=== PATIENT | male | born 1955 | race Caucasian/White ===

== ENCOUNTER → 2020-03-23 | Outpatient (CLI) | payer BC | END | disposition home or self-care (01) | LOC: LABWHC1 09:20 | PROVIDERS: ATTEND Emergency Medicine | DX: Z20.828 Contact with and (suspected) exposure to other viral communicable diseases (principal) | CPT/HCPCS: U0003; C9803 ==

== ENCOUNTER → 2023-11-20 | Day surgery (SDC) | payer BC ==
--- NOTE | 2023-11-18 20:04 | P.GSHP ---
History of Present Illness H&P Date: 11/18/23 Chief Complaint: Gross hematuria The patient is a 68-year-old white male with an unremarkable urologic history. He recently developed gross painless hematuria. CT scan showed multiple bladder calculi measuring up to 4 mm in size, as well as prostatic enlargement. He has been placed on tamsulosin and states that his voiding is improved. He has been verified to empty his bladder adequately. - Cardiovascular Cardiovascular: Reports high blood pressure - Genitourinary (Male) Genitourinary: Reports hematuria, Denies dysuria, Denies flank pain Past Medical History Additional Past Medical History / Comment(s): bladder stones History of Any Multi-Drug Resistant Organisms: None Reported Past Surgical History: No Surgical Hx Reported Additional Past Surgical History / Comment(s): facial comsetic surgery Smoking Status: Current every day smoker - Past Family History Father Family Medical History: No Reported History Medications and Allergies Home Medications Medication Instructions Recorded Confirmed Type Tamsulosin [Flomax] 0.4 mg PO HS 11/18/23 11/18/23 History Allergies Allergy/AdvReac Type Severity Reaction Status Date / Time No Known Allergies Allergy Verified 11/18/23 15:30 Surgical - Exam - General well developed, well nourished, no distress - Respiratory normal respiratory effort - Abdomen Abdomen: soft, non tender, no guarding, no rigid, no rebound - Genitourinary normal penis with no external lesions, testicles non-tender - Rectum Rectum: normal sphincter tone, no masses, other (Prostate enlarged but smooth) - Psychiatric oriented to time, oriented to person, oriented to place, speech is normal, memory intact Results - Imaging CT scan - pelvis: report reviewed Assessment and Plan (1) Calculus in bladder Status: Acute Code(s): N21.0 - CALCULUS IN BLADDER SNOMED Code(s): 03176203 Plan: Cystoscopy with removal of bladder calculi, possible cystolithotripsy. The procedure has been reviewed in detail with the patient. He is aware of potential risks, which include anesthesia, bleeding, infection, inability to remove all calculi, bladder perforation, and postoperative urinary retention.
[~2023-11-20] MED LIST: GLYCOPYRROLATE 0.2 MG/ML 2 ML VIAL ONE; HYDROmorphone 0.5 MG/0.5 ML SYRINGE IVP PRN; IPRATROPIUM-ALBUTEROL 3 ML NEB ONE; LIDOCAINE 1% INJ 10MG/ML (20 ML MDV) ONE; MIDAZOLAM 2 MG/2 ML VIAL IV PRN; MIDAZOLAM 2 MG/2 ML VIAL ONE; NEOSTIGMINE 1 MG/ML 10 ML VIAL ONE; PROPOFOL 10 MG/ML 20 ML VIAL IV ONE; ROCURONIUM 10 MG/ML (5 ML VIAL) IV ONE; SUCCINYLCHOLINE CHLORIDE 200 MG/10 ML VIAL IV ONE; fentaNYL (PF) 50 MCG/ML 2 ML AMP ONE
[2023-11-20] MEDS: LACTATED RINGERS 1,000 ML IV SCH (07:54)
[2023-11-20] MEDS: DEXAMETHASONE SOD PHOSPHATE 4 MG/ML 1 ML VIAL IV ONE (08:09)
[2023-11-20] MEDS: ONDANSETRON 4 MG/2 ML VIAL IVP ONE (08:09)
[2023-11-20] MEDS: IPRATROPIUM 0.5 MG/2.5 ML NEBU INHALATION ONE (08:15)
--- NOTE | 2023-11-20 09:28 | P.OP ---
Date of Procedure: 11/20/23 Preoperative Diagnosis: Bladder calculi Postoperative Diagnosis: Same Procedure(s) Performed: Cystoscopy with removal of bladder calculi Anesthesia: SCOTT Surgeon: Sal Hamm Estimated Blood Loss (ml): 0 IV fluids (ml): 600 Pathology: other (Bladder calculi, sent for chemical analysis) Condition: stable Disposition: PACU Indications for Procedure: The patient is a 68-year-old white male with an unremarkable urologic history. He recently developed gross painless hematuria. CT scan showed multiple bladder calculi measuring up to 4 mm in size, as well as prostatic enlargement. He has been placed on tamsulosin and states that his voiding is improved. He has been verified to empty his bladder adequately. Operative Findings: 6 bladder calculi, measuring up to 4 mm in size. Description of Procedure: The patient was taken to the operating room and placed in the dorsolithotomy position, with legs supported in Rashawn stirrups. The external genitalia was prepped and draped sterilely. The 30 lens was used to introduce the 21-Somali Curry cystoscopic sheath through the urethra and into the bladder under direct vision. The prostatic urethra showed evidence of moderate lateral lobe enlargement and a high median bar. The bladder was examined in its entirety. Both ureteral orifices were normal anatomic location and configuration. No tumors were seen. The bladder was moderately trabeculated. 6 small calculi were seen within the bladder, measuring up to 4 mm in size. These were removed from the bladder via the cystoscope. Lithotripsy was not required. Once this was completed, the bladder was emptied and the cystoscope removed. The patient tolerated the procedure well and was taken to the recovery room in stable condition.
[2023-11-20 10:08] VITALS: TEMP 97.2
[2023-11-20] MEDS: TAMSULOSIN 0.4 MG CAP.ER.24H PO ONE (12:12)
[2023-11-20 13:08] VITALS: RESP 16
[2023-11-20 13:50] VITALS: BP 152/71; PULSE 65
== END | disposition home or self-care (01) ==
LOC: OR 07:37
PROVIDERS: ATTEND Urology
DX: N21.0 Calculus in bladder (principal); N40.0 Benign prostatic hyperplasia without lower urinary tract symptoms; F17.200 Nicotine dependence, unspecified, uncomplicated
CPT/HCPCS: 52317; 82365; C1894; J2250; J0330; J1100; J2710; J0690; J2405; J2001; J3010; J2704

== ENCOUNTER → 2023-12-24 | Outpatient (CLI) | payer BC ==
--- NOTE | 2023-12-24 10:54 | CA ---
Exercise Stress Test Report Name: Rachana Mccormack Exam Date: 12/24/2023 09:09 Exam Location: [facility] Ht (in): 70 Wt (lb): 178 BSA: 1.99 Ordering Phys: Shyam Mead MD Referring Phys: SHENG, Technologist: Lázaro Jones Age: 68 Gender: M : 1955 Procedure CPT: Indications: I20.89 OTHER FORMS OF ANGINA PECTORIS ICD-10 Codes: Patient History: CHEST PAIN, FAMILY HX OF HEART DISEASE, CURRENT SMOKER (0.75 PPD X 50 YEARS) Medications: ASA 81 mg,,,,,, TAMSULOSIN,,,,, Meds past 24 hrs: Pretest Chest Pain: STRESS TEST Tamir Protocol Exercise Duration (min:sec): 06:[address] Depressions (mm): Angina Score: Clay Score: Resting HR (bpm): 58 Peak HR (bpm): 133 Resting BP (mmHg): 169 / 92 Peak BP (mmHg): 189 / 73 MPHR: 153 Target HR: 130 % MPHR: 87 METS: 7.3 Total Dose: Peak Dose: Atropine: Double Product: 51822 BP Response: Stress Termination: MAX EXERTION/TARGET HR Stress Symptoms: FATIGUE Stress Summary: ECG ANALYSIS Resting ECG: Normal sinus rhythm normal axis normal intervals Stress ECG: Patient exercised on Tamir protocol for 6 minutes achieving 7 mets 85% of predicted maximal heart rate without chest pain there was [address] segment depression noted in the inferolateral leads occasional PVCs were noted at peak exercise CONCLUSIONS Average exercise tolerance Abnormal stress test by EKG criteria Dr. Panfilo Perez MD (Electronically Signed) Final Date: 24 December 2023 10:53
--- NOTE | 2023-12-24 12:24 | NM ---
EXAMINATION TYPE: NM stress cardiolite complete DATE OF EXAM: 12/24/2023 COMPARISON: NONE CLINICAL INDICATION: Male, 68 years old with history of I20.89 OTHER FORMS OF ANGINA PECTORIS; TECHNIQUE: After the intravenous administration of 10.2 mCi Tc 99m Sestamibi - Rest images obtained 48 minutes post injection. The patient exercised using a DOLLY protocol and 1 minute prior to peak exercise was injected with 25.3 mCi Tc 99m Sestamibi - Stress images obtained 5 minutes post injectio n. FINDINGS: Targeted heart rate (130 BPM) was achieved during performance of the study (133 bpm achieved). Total exercise time 6 minutes. Review of stress and rest SPECT images demonstrates small fixed defect invol ving the mid anteroseptal wall. However, stress images show extensive perfusion defect involving the entire anteroseptal, septal, and mid to apical inferolateral and inferior shetty. No distinct perfusio n abnormality. Gated analysis shows normal wall motion with an estimated left ventricular ejection f raction of 89 %. TID calculated at 1.08, upper limits of normal. 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 Further clinical correlation r ecommended.
== END | disposition home or self-care (01) ==
LOC: RADNMMAIN 07:28
PROVIDERS: ATTEND Family Medicine
DX: I20.89 Other forms of angina pectoris (principal); R94.39 Abnormal result of other cardiovascular function study
CPT/HCPCS: 93017; 78452; A9500

== ENCOUNTER 2024-02-17 07:01 | Day surgery (SDC) | payer BC ==
[~2024-02-17 07:01] MED LIST changes: +ALPRAZolam 0.25 MG TAB PO PRN; +ALPRAZolam 0.5 MG TAB PO PRN; -GLYCOPYRROLATE 0.2 MG/ML 2 ML VIAL ONE; +HEPARIN SODIUM,PORCINE (1 ML) 2,500 UNIT in SODIUM CHLORIDE 0.9% 250 ML IRRIGATION PRN; +HEPARIN SODIUM,PORCINE 10,000 UNIT in SODIUM CHLORIDE 0.9% 1,000 ML IRRIGATION PRN; -HYDROmorphone 0.5 MG/0.5 ML SYRINGE IVP PRN; -IPRATROPIUM-ALBUTEROL 3 ML NEB ONE; -LIDOCAINE 1% INJ 10MG/ML (20 ML MDV) ONE; -MIDAZOLAM 2 MG/2 ML VIAL IV PRN; -MIDAZOLAM 2 MG/2 ML VIAL ONE; -NEOSTIGMINE 1 MG/ML 10 ML VIAL ONE; +NITROGLYCERIN SL TABS 0.4 MG TAB SUBLINGUAL PRN; -PROPOFOL 10 MG/ML 20 ML VIAL IV ONE; -ROCURONIUM 10 MG/ML (5 ML VIAL) IV ONE; -SUCCINYLCHOLINE CHLORIDE 200 MG/10 ML VIAL IV ONE; -fentaNYL (PF) 50 MCG/ML 2 ML AMP ONE
[2024-02-17] MEDS: IV FLUID CONTINUATION 1,000 ML IV ONE (07:26)
[2024-02-17 07:52] VITALS: RESP 16; TEMP 98.1
[2024-02-17] MEDS: SODIUM CHLORIDE 0.9% 1,000 ML in EMPTY BAG 1 BAG IV SCH (07:55)
[2024-02-17] MEDS: ATORVASTATIN 80 MG TAB PO STA (07:55)
[2024-02-17] MEDS: ASPIRIN 325 MG TAB PO STA (07:55)
[2024-02-17 08:20] LABS: Basophils # (A) 0.1 k/uL (0-0.2); Basophils % (A) 1 %; Eosinophils # (A) 0.1 k/uL (0-0.7); Eosinophils % (A) 1 %; HCT 49.1 % (39.0-53.0); HGB 16.5 gm/dL (13.0-17.5); Lymphocytes % (A) 22 %; MCH 30.9 pg (25.0-35.0); MCHC 33.7 g/dL (31.0-37.0); MCV 91.7 fL (80.0-100.0); Mean Platelet Volume 7.8; Monocytes # (A) 0.8 k/uL (0-1.0); Monocytes % (A) 8 %; Neutrophils # (A) 6.2 k/uL (1.3-7.7); Neutrophils % (A) 67 %; Platelet Count 232 k/uL (150-450); RBC 5.35 m/uL (4.30-5.90); RDW 13.4 % (11.5-15.5); WBC 9.3 k/uL (3.8-10.6)
[2024-02-17 08:32] LABS: African American GFR (CKD) >90 (>60 ml/min/1.73 sqM); Anion Gap 8 mmol/L; Blood Urea Nitrogen 17 mg/dL (9-20); Calcium 9.6 mg/dL (8.4-10.2); Carbon Dioxide 25 mmol/L (22-30); Chloride 106 mmol/L (98-107); Glucose 123 mg/dL (74-99); Non-African American GFR(CKD) >90 (>60 ml/min/1.73 sqM); Potassium 4.1 mmol/L (3.5-5.1); Sodium 139 mmol/L (137-145)
[2024-02-17] MEDS ORDERED: LIDOCAINE 1% INJ 10MG/ML (20 ML MDV) ONE (08:37)
[2024-02-17] MEDS ORDERED: VERAPAMIL 2.5 MG/ML 2 ML AMP ONE (08:37)
[2024-02-17] MEDS ORDERED: HEPARIN SODIUM 1,000 UN/ML (10ML VL) ONE (08:48)
[2024-02-17] MEDS ORDERED: fentaNYL (PF) 50 MCG/ML 2 ML AMP ONE (08:48)
[2024-02-17] MEDS: fentaNYL (PF) 50 MCG/ML 2 ML AMP IVP ONE (08:58)
[2024-02-17] MEDS: MIDAZOLAM 2 MG/2 ML VIAL IVP ONE (08:58)
[2024-02-17] MEDS: LIDOCAINE 1% INJ 10MG/ML (20 ML MDV) SQ ONE (09:02)
[2024-02-17] MEDS: VERAPAMIL SYRINGE (5 MG/10 ML) INTRAARTER ONE (09:04)
[2024-02-17] MEDS: HEPARIN SODIUM 1,000 UN/ML (10ML VL) IV ONE (09:07)
[2024-02-17] MEDS ORDERED: TICAGRELOR 90 MG TAB ONE (09:18)
[2024-02-17] MEDS: HEPARIN SODIUM,PORCINE 10,000 UNIT in SODIUM CHLORIDE 0.9% 1,000 ML IRRIGATION ONE (09:23)
[2024-02-17] MEDS: HEPARIN SODIUM,PORCINE (1 ML) 2,500 UNIT in SODIUM CHLORIDE 0.9% 250 ML IRRIGATION ONE (09:23)
[2024-02-17] MEDS: TICAGRELOR 90 MG TAB PO ONE (09:23)
--- NOTE | 2024-02-17 09:33 | P.CARDCATH ---
Date of Procedure: 02/17/24 Description of Procedure: DIAGNOSTIC CORONARY ANGIOGRAPHY and LEFT HEART CATH REPORT PROCEDURES PERFORMED: Left heart catheterization Selective coronary angiography Moderate conscious sedation 18 mins Right radial access INDICATION: 68-year-old with past medical history of dyslipidemia and tobacco smoker underwent a nuclear stress test which showed reversible perfusion defect in the anteroseptal wall which was moderate size and moderate density. For this he was scheduled for heart catheterization procedure. CONSENT: I have explained the procedural steps of above-mentioned procedures in layman's terms to the patient. I discussed the risks (including but not limited to stroke, emergent vascular or cardiac surgery or ), benefits and alternative therapies for the above-mentioned procedure. I discussed the risks of sedation/analgesia and blood product administration (if indicated). The pat ient has indicated understanding and acceptance of these risks. Conscious Sedation: Patient's ECG, heart rate, blood pressure, pulse oximetry were monitored throughout the duration of procedure under my direct supervision. [2] mg Versed and [50] mcg Fentanyl were used for induction of moderate conscious sedation. Total duration of moderate concious sedation 18 minutes. PROCEDURE: After explaining the risks, benefits and alternatives of the above mentioned procedures in detail to the patient, informed consent was obtained. Patient was taken to the catheterization lab, prepped and draped in usual sterile fashion using universal precuations. Ultrasound was used to identify the radial artery. 1% lidocaine was infiltrated over the right radial artery. A 6-Icelandic sheath was placed and secured in the right radial artery using modified Seldinger technique. The sheath was flushed and 5 mg verapamil was administered intra-arterially. J tipped wire was advanced under fluoroscopic guidance. Once the wire tip reached aortic root [5000] units of IV heparin was given. Over the wire JR4 diagnostic catheter was advanced. The wire in place the catheter was manipulated to cross the aortic valve and entered into LV under fluoroscopy guidance. The wire was removed and the catheter was flushed. LV pressures were obtained and pullback was performed under fluoroscopy. Catheter was manipulated to selectively engage the right coronary ostium. Right coronary angiography was performed in different angiographic projections. The JR4 diagnostic catheter was exchanged for a JL 3.5 diagnostic catheter over the J-wire. The wire was removed, catheter was flushed and manipulated under fluoroscopy to selectively engaged the left coronary ostium. Left coronary angioplasty was performed in different angiographic projections. Catheter was removed over the wire. Radial sheath was flushed. The right radial sheath was removed and a TR band was placed with excellent patent hemostasis was achieved. The patient tolerated the procedure well. Patient was transported back to the post catheterization holding area in stable condition. Angiographic images were reviewed in detail. Technical details Fluoroscopy time 2.8 minutes Total radiation 106 mGy Complications none Blood loss less than 10 mL Contrast used Isovue 50 mL HEMODYNAMICS: Aortic Pressure: 113/57 mmHg. LV pressure: 114/6 mmHg. LVEDP 12 mmHg. There was no significant gradient across the aortic valve. SELECTIVE CORONARY ARTERIOGRAPHY: LEFT MAIN: The left main is short and large caliber vessel. It bifurcates into the LAD and circumflex. Left main appears angiographically normal. LEFT ANTERIOR DESCENDING CORONARY ARTERY: LAD is a large caliber vessel which wraps around to the apex. Proximal LAD has mild irregularities. It gives rise to a medium size diagonal branch which appears angiographically patent. Mid LAD has 90% eccentric calcific stenosis. Mid LAD gives rise to diagonal 2 branch which is medium size and appears angiographically patent. Distal LAD has mild luminal irregularities but otherwise is angiographically patent. LEFT CIRCUMFLEX CORONARY ARTERY: It is nondominant vessel. Proximal LCx mild luminal irregularities. It gives rise to a small OM1 branch, large OM 2 branch and a small AV groove branch. Large OM1 has 40 to 50% disease in mid segment and 50% disease in distal segment, otherwise patent RIGHT CORONARY ARTERY: Dominant vessel. The right coronary artery is a large caliber vessel which gives PDA and PLV branch. Proximal and distal RCA has mild luminal irregularities and is otherwise patent IMPRESSION: 90% stenosis mid LAD 40-50% mid and distal LCx Normal LVEDP PLAN: Plan for intervention of mid LAD Case discussed with Dr Rodriguez Performing Physician Denton Dudley MD, FACC, RPVI Thank you for allowing [facility] to participate in this patient's care. Feel free to reach out in case of any followup questions.
[2024-02-17] MEDS: NITROGLYCERIN 1000MCG/10ML SYRINGE INTRACORON ONE (09:55)
[2024-02-17] MEDS: IOPAMIDOL-370 100ML BTL INJ ONE ×2 (09:59→10:09)
[2024-02-17] MEDS ORDERED: NITROGLYCERIN SL TABS 0.4 MG TAB SUBLINGUAL PRN (11:08)
[2024-02-17] MEDS ORDERED: RX INFO: IV CONTRAST WAS GIVEN 1 EACH MISC MISCELLANE PRN (11:08)
[2024-02-17] MEDS ORDERED: ACETAMINOPHEN TAB 325 MG TAB PO PRN (11:08)
[2024-02-17] MEDS ORDERED: ATROPINE SULFATE 0.1 MG/ML 10ML SYRINGE IV PRN (11:08)
[2024-02-17] MEDS ORDERED: ZOLPIDEM 5 MG TAB PO PRN (11:08)
[2024-02-17] MEDS ORDERED: MAG HYDROX/AL HYDROX/SIMETH 30 ML CUP PO PRN (11:08)
[2024-02-17 16:04] VITALS: BP 149/67; PULSE 60
--- NOTE | 2024-02-17 16:54 | P.PRCINT ---
Percutaneous Coronary Int. - Percutaneous Coronary Intervention Percutaneous Coronary Intervention: PROCEDURES PERFORMED: Left coronary angiography, PCI mid LAD with a 3.25 x 12mm Xience WALTER, post dilated with a 3.25mm NC, Penumbra aspiration thrombectomy LAD, IVUS LAD INDICATION: Angina, NYHA class 3 symptoms, abnormal stress test CONSENT:I have discussed the risks, benefits and alternative therapies for the above-mentioned procedure and for both sedation/analgesia as well as necessary blood product administration, if indicated, as they pertain to this patient. The patient has indicated understanding and acceptance of the risks and procedures discussed. PROCEDURE: After the risks, benefits and alternatives of the above mentioned procedure explained in detail with the patient, informed consent was obtained. Patient was taken to the catheterization lab and prepped and draped in usual fashion. A 6-Cypriot sheath had been placed in the right radial artery previously. The decision was made to perform PCI of LAD. Heparin was given. A 6-Cypriot CLS 3.0 guide was he is engaged the left main. A 0.014 BMW wire was advanced distal LAD. There was some haziness and therefore consideration of some thrombus and therefore penumbra aspiration thrombectomy was performed with a penumbra catheter. Neck free balloon dilation was performed with a 3.0 balloon intravascular ultrasound showed reference vessel 3.25 mm. A 3.25 x 12 mm stent was placed in the mid LAD just past the diagonal branch. The proximal portion of the stent was postdilated with a 3.25mm noncompliant balloon. Predilation there was 90% stenosis and MAYITO-3 flow and post intervention there was less than 10% stenosis and MAYITO-3 flow. The right radial sheath was removed and a TR band was placed with hemostasis achieved. The patient tolerated the procedure well. Patient was transported back to the post catheterization holding area in stable condition. Conscious Sedation: Patient was monitored under the direct supervision of myself for conscious sedation using Versed and fentanyl for a total duration of 36 minutes HEMODYNAMICS: Ao: 139/71 SELECTIVE CORONARY ARTERIOGRAPHY: LEFT MAIN: The left main is a large caliber vessel which bifurcates into the LAD and circumflex. There is no significant stenosis. LEFT ANTERIOR DESCENDING CORONARY ARTERY: LAD is a large caliber vessel which wraps around to the apex. There is proximal LAD 20-30% stenosis and a mid LAD 90% stenosis just after a moderate caliber diagonal 1 branch. LEFT CIRCUMFLEX CORONARY ARTERY: Left circumflex is a moderate caliber vessel with diffuse 30-40% stenosis. RIGHT CORONARY ARTERY: The right coronary was not imaged FINAL IMPRESSION: 1. CAD as described above with 30-40% circumflex and 90% mid LAD stenosis 2. S/p PCI mid LAD with a 3.25 x 12mm Xience WALTER, post dilated with a 3.25mm NC PLAN: 1. Aggressive risk factor modification per most recent ACC/AHA guidelines. 2. Continue dual antiplatelets with aspirin and Brillinta for 6 months. 3. Tobacco cessation encouraged and patient given material for [place] quit line
[2024-02-17] MEDS ORDERED: TICAGRELOR 90 MG TAB PO SCH (21:00)
[2024-02-18] MEDS ORDERED: ASPIRIN 81 MG PO SCH (09:00)
== END 2024-02-17 14:19 | disposition home or self-care (01) ==
LOC: CATHCVL 07:01 → 6NMEDSUR 10:05 → CATHCVL 10:05
PROVIDERS: ATTEND Student in an Organized Health Care Education/Training Program
DX: I25.10 Atherosclerotic heart disease of native coronary artery without angina pectoris (principal); E78.5 Hyperlipidemia, unspecified; F17.200 Nicotine dependence, unspecified, uncomplicated
CPT/HCPCS: 92978; 92973; 93458; 80048; 85025; C9600; J2250; J1644 ×3; J2001; J3010; Q9967; J2305